=== PATIENT | male | born 1975 | race Caucasian/White ===

== ENCOUNTER 2016-03-30 19:17 | Emergency (ER) | payer OTHER ==
[2016-03-30 19:23] VITALS: BP 124/84; PULSE 82; TEMP 98.4; BMI 29.2
[2016-03-30 19:36] LABS: URINE APPEARANCE Clear; URINE BILIRUBIN Negative (NEGATIVE); URINE BLOOD Negative (NEGATIVE); URINE GLUCOSE (UA) Negative (NEGATIVE); URINE KETONE Negative (NEGATIVE); URINE LEUK ESTERASE Negative (NEGATIVE); URINE NITRITE Negative (NEGATIVE); URINE PROTEIN Negative (NEGATIVE); URINE UROBILINOGEN 0.2 E.U/dl (0.2-1.0)
[2016-03-30 19:38] LABS: URINE COLOR AMBER
--- NOTE | 2016-03-30 20:20 | PDOC ---
History of Present Illness - General History Source: Patient Exam Limitations: No Limitations - History of Present Illness Initial Comments: 03/30/16 20:44 The patient is a 41 year old male, with a significant past medical history of DM , HTN, down's syndrome, and seasonal allergies, who presents to the emergency department with burning urination since monday. He reports his pain has severely worsened since monday. He denies any new abdominal pain. He reports never having this pain before and denies any previous kidney or bladder issues. Patient reports just started a course of antibiotics by his PCP, for cold like symptoms. He denies chest pain and shortness of breath. He denies fever, chills, headache and dizziness. He denies nausea, vomit, diarrhea and constipation. He denies frequency, urgency and hematuria. Allergies: Atropine (hives) and Sulfa (hives). Past surgical history: denies. Social History: Denies EtOH, denies tobacco, denies drug use. PCP: . <Darren Storm - Last Filed: 03/30/16 20:54> <Laurel Santoro - Last Filed: 03/31/16 04:54> - General Chief Complaint: Urinary Problem Stated Complaint: BURNING URINATION Time Seen by Provider: 03/30/16 19:20 Past History <Darren Storm - Last Filed: 03/30/16 20:54> - Past Medical History Diabetes: Yes GI Disorders: Yes (REFLUX) HTN: Yes Suicide Attempt (Hx): No - Psycho/Social/Smoking Cessation Hx Anxiety: No Suicidal Ideation: No Smoking Status: No Smoking History: Never smoked Have you smoked in the past 12 months: No Number of Cigarettes Smoked Daily: 0 Information on smoking cessation initiated: No Hx Alcohol Use: No Drug/Substance Use Hx: No Substance Use Type: None <Laurel Santoro - Last Filed: 03/31/16 04:54> - Past Medical History Allergies/Adverse Reactions: Allergies Allergy/AdvReac Type Severity Reaction Status Date / Time atropine Allergy Intermediate Hives Verified 03/30/16 19:20 Sulfa (Sulfonamide Allergy Intermediate Hives Verified 03/30/16 19:20 Antibiotics) Home Medications: Ambulatory Orders Acetaminophen [Tylenol] 650 mg PO PRN PRN 11/22/14 Levocetirizine Dihydrochloride 5 mg SQ ASDIR 11/22/14 Olopatadine HCl [Pataday] 1 drop OU DAILY 11/22/14 l-Theanine 200 mg PO ACDIN 11/22/14 Diabetic Tussin Dm Liquid 10 ml PO PRN 01/23/16 Docusate Sodium [Colace -] 1 cap .ROUTE DAILY 01/23/16 Metformin HCl [Metformin HCl ER] 1,000 mg PO BID 01/23/16 Sitagliptin Phos/Metformin HCl [Janumet 50-1,000 mg Tablet] 1 tab PO HS Iron,Carbonyl/Ascorbic Acid [Iron 100-Vitamin C Tablet] 1 each PO DAILY Review of Systems - Review of Systems All Other Systems: Reviewed and Negative <Darren Storm - Last Filed: 03/30/16 20:54> *Physical Exam - Vital Signs Last Vital Signs Temp Pulse Resp BP Pulse Ox 98.4 F 82 16 124/84 98 03/30/16 19:20 03/30/16 19:20 03/30/16 19:20 03/30/16 19:20 03/30/16 19:20 - Physical Exam Comments: 03/30/16 20:45 GENERAL: The patient is awake, alert, and fully oriented, in no acute distress. HEAD: Normal with no signs of trauma. EYES: Pupils equal, round and reactive to light, extraocular movements intact, sclera anicteric, conjunctiva clear with no pallor. ENT: Ears normal, nares patent, oropharynx clear without exudates. Moist mucous membranes. NECK: Normal range of motion, supple without lymphadenopathy, JVD, or masses. LUNGS: Breath sounds equal, clear to auscultation bilaterally. No wheeze/ crackles. HEART: Regular rate and rhythm, normal S1 and S2 without murmur or rub. PELVIC: Normal male genitalia without lesions or erythema ABDOMEN: Soft/nontender/nondistended. BS wnl. No guarding or rebound. No palpable masses. No hepatosplenomegaly. EXTREMITIES: Normal range of motion, no edema. No clubbing or cyanosis. No cords , erythema, or tenderness. NEUROLOGICAL: Cranial nerves II through XII grossly intact. Normal speech, normal gait. PSYCH: Normal mood, normal affect. SKIN: Warm, Dry, normal turgor, no rashes or lesions noted. <Darren Storm - Last Filed: 03/30/16 20:54> - Vital Signs Last Vital Signs Temp Pulse Resp BP Pulse Ox 98.4 F 82 16 124/84 98 03/30/16 19:20 03/30/16 19:20 03/30/16 19:20 03/30/16 19:20 03/30/16 19:20 <Laurel Santoro - Last Filed: 03/31/16 04:54> ED Treatment Course - ADDITIONAL ORDERS Additional order review: Laboratory Results 03/30/16 19:25 Urine Color Laverne Urine Appearance Clear Urine pH 5.0 Ur Specific [place] >= 1.030 H Urine Protein Negative Urine Glucose (UA) Negative Urine Ketones Negative Urine Blood Negative Urine Nitrite Negative Urine Bilirubin Negative Urine Urobilinogen 0.2 e.u/dl Ur Leukocyte Esterase Negative <Darren Storm - Last Filed: 03/30/16 20:54> - ADDITIONAL ORDERS Additional order review: Laboratory Results 03/30/16 19:25 Urine Color Laverne Urine Appearance Clear Urine pH 5.0 Ur Specific [place] >= 1.030 H Urine Protein Negative Urine Glucose (UA) Negative Urine Ketones Negative Urine Blood Negative Urine Nitrite Negative Urine Bilirubin Negative Urine Urobilinogen 0.2 e.u/dl Ur Leukocyte Esterase Negative <Laurel Santoro - Last Filed: 03/31/16 04:54> Progress Note - Progress Note Progress Note: Documentation has been prepared under my direction and personally reviewed by me in its entirety. I attest that this documented accurately reflects all work, treatment, procedures and medical decision making performed by me. <Laurel Santoro - Last Filed: 03/31/16 04:54> Medical Decision Making - Medical Decision Making As noted above, this 41-year-old man with a history of DM, HTN and Down's syndrome presents with a few day history of dysuria. Patient describes burning when he urinates but no discomfort otherwise. He denies frequency/urgency or hematuria. There are no other associated symptoms. Exam is normal. New Urinalysis shows no evidence of blood/LE/nitrite or other abnormality on dipstick. Since patient does not have any systemic complaints and exam/urinalysis is normal, no apparent antibiotic treatment will be started and no urine C&S will be sent. Since the patient had recently been started on antibiotics for sinus infection (father and patient are unclear of identification of the antibiotic), it was suggested that he either take probiotics or eat yogurt. There is no clinical evidence at this point of any candidal infection in the perineum, however. Doubt prostatitis in light of completely normal urinalysis The patient has been seen by Dr. Enzo Cantor (urologist) in the past. Patient and his father had been advised to call his office tomorrow to make a follow-up appointment in the next few days. Patient should return to the emergency room if symptoms worsen <Laurel Santoro - Last Filed: 03/31/16 04:54> *DC/Admit/Observation/Transfer - Attestations Scribe Attestion: 03/30/16 20:33 Documentation prepared by Darren Storm, acting as director of graduate medical education for Laurel Santoro MD. <Darren Storm - Last Filed: 03/30/16 20:54> <Laurel Santoro - Last Filed: 03/31/16 04:54> Diagnosis at time of Disposition: Dysuria - Discharge Dispostion Disposition: HOME Condition at time of disposition: Stable - Referrals Referrals: Enzo Cantor MD [Staff Physician] - Call tomorrow - Patient Instructions Printed Discharge Instructions: DI for Dysuria -- Adult Additional Instructions: Drink plenty of fluids Continue medications as prescribed Consider eating yogurt daily Call office tomorrow to make an appointment within the next 2 days Return to ER if you have severe burning, fever, abdominal pain, vomiting
== END 2016-03-30 20:57 | disposition home or self-care (01) ==
LOC: FER 19:17
DX: R30.0 Dysuria (principal); Q90.9 Down syndrome, unspecified; I10 Essential (primary) hypertension; E11.9 Type 2 diabetes mellitus without complications; K21.9 Gastro-esophageal reflux disease without esophagitis; Z79.84 Long term (current) use of oral hypoglycemic drugs
CPT/HCPCS: 81003; 87086; 99282-25

== ENCOUNTER 2016-05-21 17:04 | Emergency (ER) | payer OTHER ==
--- NOTE | 2016-05-21 17:08 | PDOC ---
History of Present Illness - General Chief Complaint: Urinary Problem Stated Complaint: URINARY FREQUENCY & BURNING Time Seen by Provider: 05/21/16 17:07 History Source: Patient Exam Limitations: No Limitations - History of Present Illness Initial Comments: 05/21/16 17:38 CHIEF COMPLAINT: Dysuria PCP: Dr. Real Soler ( Security Technician) HISTORY OF PRESENT ILLNESS: 41 year old male presented to the ED with the chief complaints of burning urination since 5 days. A/c to the patient, he has been having the burning sensation on/off, increased in frequency, urgency, hesitancy and urinary incontinence few episodes. Denies fever, chills, rigors, sweating, abdominal pain, flank pain, nausea or vomiting. Patient was seen in the ED on 03/30/16 for the same urinary symptom, UA was done but the culture was not sent as there was no leukocyte esterase. Patient visited Dr. Kanika Soler yesterday and labs were drawn. He has an appointment scheduled with Dr. Soler on 05/24/2016 Denies penile discharge or pain. Recent Travel: None PAST MEDICAL HISTORY: DM, HTN, down's syndrome, and seasonal allergies PAST SURGICAL HISTORY: As mentioned above Allergies: Atropine (hives) and Sulfa (hives). Past surgical history: denies. Social History: Denies EtOH, denies tobacco, denies drug use. 05/21/16 17:50 Past History - Past Medical History Allergies/Adverse Reactions: Allergies Allergy/AdvReac Type Severity Reaction Status Date / Time atropine Allergy Intermediate Hives Verified 05/21/16 17:18 Sulfa (Sulfonamide Allergy Intermediate Hives Verified 05/21/16 17:18 Antibiotics) Home Medications: Ambulatory Orders Acetaminophen [Tylenol] 650 mg PO PRN PRN 11/22/14 Olopatadine HCl [Pataday] 1 drop OU DAILY 11/22/14 l-Theanine 200 mg PO ACDIN 11/22/14 Docusate Sodium [Colace -] 1 cap PO DAILY 01/23/16 Metformin HCl [Metformin HCl ER] 1,000 mg PO BID 01/23/16 Sitagliptin Phos/Metformin HCl [Janumet 50-1,000 mg Tablet] 1 tab PO HS Iron,Carbonyl/Ascorbic Acid [Iron 100-Vitamin C Tablet] 1 each PO DAILY Fexofenadine HCl [Arely Allergy] 180 mg PO HS 05/21/16 Diabetes: Yes GI Disorders: Yes (REFLUX) HTN: Yes Suicide Attempt (Hx): No - Psycho/Social/Smoking Cessation Hx Anxiety: No Suicidal Ideation: No Smoking Status: No Smoking History: Never smoked Have you smoked in the past 12 months: No Number of Cigarettes Smoked Daily: 0 Hx Alcohol Use: No Drug/Substance Use Hx: No Substance Use Type: None Review of Systems - Review of Systems Able to Perform ROS?: Yes Comments:: 05/21/16 17:49 CONSTITUTIONAL: Absent: fever, chills, diaphoresis, generalized weakness, malaise, loss of appetite HEENT: Absent: rhinorrhea, nasal congestion, throat pain, throat swelling, difficulty swallowing, mouth swelling, ear pain, eye pain, visual Changes CARDIOVASCULAR: Absent: chest pain, syncope, palpitations, irregular heart rate, lightheadedness , peripheral edema RESPIRATORY: Absent: cough, shortness of breath, dyspnea with exertion, orthopnea, wheezing, stridor, hemoptysis GASTROINTESTINAL: Absent: abdominal pain, abdominal distension, nausea, vomiting, diarrhea, constipation, melena, hematochezia GENITOURINARY: Present: dysuria, frequency, urgency, hesitancy Absent: , hematuria, flank pain, genital pain MUSCULOSKELETAL: Absent: myalgia, arthralgia, joint swelling SKIN: Absent: rash, itching, pallor HEMATOLOGIC/IMMUNOLOGIC: Absent: easy bleeding, easy bruising, lymphadenopathy, frequent infections ENDOCRINE: Absent: unexplained weight gain, unexplained weight loss, heat intolerance, cold intolerance NEUROLOGIC: Absent: headache, focal weakness or paresthesias, dizziness, unsteady gait, seizure, mental status changes, bladder or bowel incontinence PSYCHIATRIC: Absent: anxiety, depression, suicidal or homicidal ideation, hallucinations. Is the patient limited Bahraini proficient: No *Physical Exam - Physical Exam Comments: 05/21/16 17:50 PE: GENERAL: Awake, alert, and fully oriented, in no acute distress HEAD: No signs of trauma EYES: PERRLA, EOMI, sclera anicteric, conjunctiva clear ENT: Auricles normal inspection, hearing aid in place bilaterally, nares patent , oropharynx clear without exudates. Moist mucosa NECK: Normal ROM, supple, no lymphadenopathy, JVD, or masses LUNGS: Breath sounds equal, clear to auscultation bilaterally. No wheezes, and no crackles.. HEART: Regular rate and rhythm, normal S1 and S2, no murmurs, rubs or gallops ABDOMEN: Soft, nontender, normoactive bowel sounds. No guarding, no rebound. No masses EXTREMITIES: Normal range of motion, no edema. No clubbing or cyanosis. No cords, erythema, or tenderness NEUROLOGICAL: Cranial nerves II through XII grossly intact. Normal speech, normal gait SKIN: Warm, Dry, normal turgor, no rashes or lesions noted. Medical Decision Making - Medical Decision Making 05/21/16 17:08 Patient seen and examined at bed side. Vitals, unremarkable. Looks comfortable and not in acute distress or pain. Physical examination normal. Will order UA and urine culture 05/21/16 17:15 Urinalysis: No signs of infection, no blood. 05/21/2016 17:30 Clinical Impression: urinary symptoms with normal UA, urine culture pending Plan: Since patient is afebrile, hemodynamically stable, he can be discharged Patient has been advised to call on Monday to get urine culture reports. He has a scheduled appointment with Dr. Soler on 05/24/16 And to return to the ED if any new symptoms develop. Illness, Investigation and Plan of care explained to the patient. He verbalized understanding. Case seen and discussed with Dr. Tyler. *DC/Admit/Observation/Transfer Diagnosis at time of Disposition: Urinary frequency - Discharge Dispostion Disposition: HOME Condition at time of disposition: Good Admit: No - Referrals Referrals: Uli Noble MD [Primary Care Provider] - - Patient Instructions Printed Discharge Instructions: Urinary Tract Infection Additional Instructions: Your urine examination didn't show any infection and there was no blood. We have ordered Urine culture. Please call us on Monday to get the reports. Also, make sure you take the documents to the doctor on Monday. Return to the emergency department immediately with ANY new, persistent or worsening symptoms. You MUST call and follow up with your doctor tomorrow. Please make sure your doctor reviews the results of your emergency department evaluation.
--- NOTE | 2016-05-21 17:09 | PDOC ---
Attending Attestation - Resident Resident Name: Katherine Barrowny - ED Attending Attestation I have performed the following: I have examined & evaluated the patient, The case was reviewed & discussed with the resident, I agree w/resident's findings & plan, Exceptions are as noted - HPI HPI: 05/21/16 17:20 The patient is a 41-year-old male, with a significant past medical history of, who presents to the emergency room department complaining of urinary frequency and dysuria for the past several days. He has had similar complaints often for the past several years. The patient saw his primary care physician for similar complaints earlier in this week, and had "a full set of labs" which were apparently normal. He also had a urinalysis, which was normal. A urine culture was not sent. He denies fever. He denies urethral discharge. He denies testicular pain. He denies noting any penile lesions. 05/21/16 17:31 - Physicial Exam PE: 05/21/16 17:21 He is well-appearing and in no acute distress Vitals noted 05/21/16 17:32 - Medical Decision Making 05/21/16 17:32 UA unremarkable Sending culture Will refer to urology
[2016-05-21 17:19] LABS: PH,URINE 5.5 (4.5-8); URINE APPEARANCE Clear; URINE BILIRUBIN Negative (NEGATIVE); URINE BLOOD Negative (NEGATIVE); URINE COLOR YELLOW; URINE GLUCOSE (UA) Negative (NEGATIVE); URINE KETONE Trace (NEGATIVE); URINE LEUK ESTERASE Negative (NEGATIVE); URINE NITRITE Negative (NEGATIVE); URINE PROTEIN Negative (NEGATIVE); URINE UROBILINOGEN 0.2 E.U/dl (0.2-1.0)
[2016-05-21 17:24] VITALS: BP 96/69; PULSE 80; TEMP 97.4; BMI 34.1
== END 2016-05-21 18:00 | disposition home or self-care (01) ==
LOC: FER 17:04
DX: R39.15 Urgency of urination (principal); E11.9 Type 2 diabetes mellitus without complications; I10 Essential (primary) hypertension; Q90.9 Down syndrome, unspecified; J30.2 Other seasonal allergic rhinitis
CPT/HCPCS: 81003; 87086; 99282-25

== ENCOUNTER 2016-07-19 18:27 | Emergency (ER) | payer OTHER ==
--- NOTE | 2016-07-19 18:40 | PDOC ---
History of Present Illness - History of Present Illness Initial Comments: 07/19/16 18:59 The patient is a 41 year old male with a past medical hx of DM, HTN, down's syndrome who presents to the ED complaining of abdominal pain since 1300 this afternoon. The patient states the pain is intermittent and localized to his central abdomen. He denies any nausea, vomiting, diarrhea. The patient denies any fever, chills, chest pain, SOB PAST SURGICAL HISTORY: no significant history FAMILY HISTORY: no pertinent history MEDICATIONS: reviewed ALLERGIES: As per nursing notes General: No fevers or chills, no weakness, no weight loss HEENT: No change in vision. No sore throat, No ear pain CardioVascular: No chest pain or shortness of breath Respiratory:No cough, or wheezing. Gastrointestinal: +Abdominal pain. no nausea, vomiting or diarrhea, No rectal bleeding Genitourinary: No dysuria, hematuria, or frequency Musculoskeletal: No joint or muscle pain or swelling Neurologic: No headache, vertigo, dizziness or loss of consciousness Psychiatric: no depression Skin: No rashes or easy bruising Endocrine: no increased thirst or abnormal weight change Allergic: no skin or latex allergy All other systems reviewed and normal General: Well-nourished well-developed individual, no acute distress HEENT: Throat: Normal, tonsils normal, no erythema or exudate Neck: Supple, no meningeal signs, no lymphadenopathy Eyes::Pupils equal reactive and round, extraocular motion intact Chest: Nontender to palpation Cardiac: S1-S2 normal, regular rate and rhythm, no murmurs rubs or gallops Respiratory: Lungs clear to auscultation bilateral Abdomen: +Slightly distended. Soft, normal bowel sounds, nontender to deep palpation diffusely Extremities: Warm, dry, no cyanosis, clubbing, or edema Skin: No rashes Neuro: Alert and oriented x3, nonfocal exam, grossly intact, normal gait Psych: Normal mood and affect <Eli Aguiar - Last Filed: 07/19/16 18:59> - General History Source: Patient, Parent(s) Exam Limitations: No Limitations - History of Present Illness Initial Comments: 07/19/16 19:21 A portion of this note was documented by scribe services under my direction. I have reviewed the details of the note, within reason, and agree with the documentation. The case summary and management plan written by me. X-ray flat and upright abdomen noted no acute pathology no obstruction there is a large amount of stool with a large gastric bubble otherwise normal. Assessment and plan: This is a 41-year-old male with history of Down syndrome and diabetes who has some underlying gastroparesis. Patient comes in complaining of intermittent moderately severe crampy abdominal pain. Patient was pain-free at the time of my evaluation. Patient had no tenderness on palpation of the abdomen and it was slightly distended secondary to constipation. X-ray did show moderate amount of constipation. Patient given bottle of mag citrate that he'll drink when he gets home tonight and also has Metamucil as well as MiraLAX that he can take if he has no results from the mag citrate. Patient discharged home with his father. <Eileen Gabriel I - Last Filed: 07/19/16 19:24> - General Chief Complaint: Pain Stated Complaint: abd pain Time Seen by Provider: 07/19/16 18:38 Past History <Eli Aguiar - Last Filed: 07/19/16 18:59> - Past Medical History Diabetes: Yes GI Disorders: Yes (REFLUX) Disorders: Yes HTN: Yes Suicide Attempt (Hx): No - Psycho/Social/Smoking Cessation Hx Anxiety: No Suicidal Ideation: No Smoking Status: No Smoking History: Never smoked Have you smoked in the past 12 months: No Number of Cigarettes Smoked Daily: 0 Hx Alcohol Use: No Drug/Substance Use Hx: No Substance Use Type: None <Eileen Gabriel Last Filed: 07/19/16 19:24> - Past Medical History Allergies/Adverse Reactions: Allergies Allergy/AdvReac Type Severity Reaction Status Date / Time atropine Allergy Intermediate Hives Verified 07/19/16 18:29 Sulfa (Sulfonamide Allergy Intermediate Hives Verified 07/19/16 18:29 Antibiotics) Home Medications: Ambulatory Orders Acetaminophen [Tylenol] 650 mg PO PRN PRN 11/22/14 Olopatadine HCl [Pataday] 1 drop OU DAILY 11/22/14 l-Theanine 200 mg PO ACDIN 11/22/14 Docusate Sodium [Colace -] 1 cap PO DAILY 01/23/16 Metformin HCl [Metformin HCl ER] 1,000 mg PO BID 01/23/16 Sitagliptin Phos/Metformin HCl [Janumet 50-1,000 mg Tablet] 1 tab PO HS Iron,Carbonyl/Ascorbic Acid [Iron 100-Vitamin C Tablet] 1 each PO DAILY Fexofenadine HCl [Arely Allergy] 180 mg PO HS 05/21/16 *Physical Exam - Vital Signs Last Vital Signs Temp Pulse Resp BP Pulse Ox 98.3 F 81 20 156/93 96 07/19/16 18:28 07/19/16 18:28 07/19/16 18:28 07/19/16 18:28 07/19/16 18:28 <Eli Aguiar - Last Filed: 07/19/16 18:59> *DC/Admit/Observation/Transfer - Attestations Scribe Attestion: 07/19/16 18:59 Documentation prepared by Eli Aguiar, acting as medical device sales representative for Eileen Gabriel MD/DO. <Eli Aguiar - Last Filed: 07/19/16 18:59> - Discharge Dispostion Admit: No <Eileen Gabriel I - Last Filed: 07/19/16 19:24> Diagnosis at time of Disposition: Constipation Qualifiers: Constipation type: slow transit constipation Qualified Code(s): K59.01 - Slow transit constipation - Discharge Dispostion Disposition: HOME - Patient Instructions Printed Discharge Instructions: DI for Constipation, Constipation (Alternative Therapy) Additional Instructions: Make sure you drink plenty of fluid as I will help with the constipation.. Drink the bottle of mag citrate tonight if you do not have a moderate to large bowel movement then take some MiraLAX.. Continue the Metamucil. Return to the emergency department immediately with ANY new, persistent or worsening symptoms. Continue any medications as previously prescribed by your physician. You should follow up with your primary doctor as soon as possible regarding today's emergency department visit. . Please make sure your doctor reviews the results of your emergency evaluation. Thank you for coming to the Emergency Department today for your care. It was a pleasure to see you today. Please note that your evaluation is INCOMPLETE until you follow-up with your doctor.
[2016-07-19 18:49] VITALS: BP 156/93; PULSE 81; TEMP 98.3; BMI 31.9
[2016-07-19] MEDS ORDERED: MAGNESIUM CITRATE 300 ML BOTTLE PO ONE (19:20)
[2016-07-19] MEDS ORDERED: MAGNESIUM CITRATE 300 ML BOTTLE ONE (19:24)
== END 2016-07-19 19:30 | disposition home or self-care (01) ==
LOC: FER 18:27
DX: K59.01 Slow transit constipation (principal); E11.9 Type 2 diabetes mellitus without complications; K21.9 Gastro-esophageal reflux disease without esophagitis; I10 Essential (primary) hypertension
CPT/HCPCS: 74020-TC; 99282-25

== ENCOUNTER 2021-03-18 18:14 | Emergency (ER) | payer OTHER ==
[2021-03-18 19:31] VITALS: BP 124/73; PULSE 96; TEMP 98.5; BMI 30.8
[2021-03-18] MEDS ORDERED: PSEUDOEPHEDRINE HCL 60 MG TABLET PO ONE (19:44)
[2021-03-18] MEDS ORDERED: PSEUDOEPHEDRINE HCL 30 MG TABLET ONE (19:46)
== END 2021-03-18 19:54 | disposition home or self-care (01) ==
LOC: FER 18:14 → SUPCPDRO 18:14 → FER 19:54
DX: R09.81 Nasal congestion (principal)
CPT/HCPCS: 99283-25

== ENCOUNTER 2023-02-22 05:24 | Day surgery (SDC) | payer OTHER ==
[2023-02-20 11:46] VITALS: BMI 29.3
[2023-02-22 08:55] VITALS: TEMP 97.6
[2023-02-22 09:22] VITALS: RESP 16
[2023-02-22 09:39] VITALS: BP 127/66; PULSE 74
== END 2023-02-22 09:54 | disposition home or self-care (01) ==
LOC: JASU-ENDO 05:24
PROVIDERS: ATTEND Internal Medicine Gastroenterology
PROC: 0DB98ZX Excision of Duodenum, Via Natural or Artificial Opening Endoscopic, Diagnostic (ICD-10-PCS; 2023-02-22)
PROC: 0DB78ZX Excision of Stomach, Pylorus, Via Natural or Artificial Opening Endoscopic, Diagnostic (ICD-10-PCS; 2023-02-22)
PROC: 0DB68ZX Excision of Stomach, Via Natural or Artificial Opening Endoscopic, Diagnostic (ICD-10-PCS; 2023-02-22)
PROC: 0DBH8ZX Excision of Cecum, Via Natural or Artificial Opening Endoscopic, Diagnostic (ICD-10-PCS; principal; 2023-02-22 08:00)
DX: Z12.11 Encounter for screening for malignant neoplasm of colon (principal); K63.5 Polyp of colon; K57.30 Diverticulosis of large intestine without perforation or abscess without bleeding; K64.8 Other hemorrhoids; K29.50 Unspecified chronic gastritis without bleeding; Z83.719 Family history of colon polyps, unspecified; I10 Essential (primary) hypertension; E11.9 Type 2 diabetes mellitus without complications; Z79.84 Long term (current) use of oral hypoglycemic drugs; Z79.85 Long-term (current) use of injectable non-insulin antidiabetic drugs
CPT/HCPCS: 82962